=== PATIENT | female | born 1965 | race Caucasian/White ===

== ENCOUNTER → 2017-01-29 | Outpatient (REF) | payer BC ==
[2017-01-29 14:13] LABS: CALCIUM LEVEL 9.1 MG/DL (8.5-10.1)
== END ==
LOC: M LABDRAW1 12:50
PROVIDERS: ATTEND Orthopaedic Surgery
DX: M75.31 Calcific tendinitis of right shoulder (principal)

== ENCOUNTER → 2017-04-19 | Outpatient (REF) | payer BC ==
[2017-04-19 12:49] LABS: ALBUMIN 3.9 GM/DL (3.2-5.2); ALBUMIN/GLOBULIN RATIO 1.15 (1.00-1.93); ALKALINE PHOSPHATASE 60 U/L (45-117); ALT/SGPT 42 U/L (12-78); ANION GAP 8 MEQ/L (8-16); AST/SGOT 19 U/L (15-37); BILIRUBIN,TOTAL 0.4 MG/DL (0.2-1.0); BLOOD UREA NITROGEN 14 MG/DL (7-18); CARBON DIOXIDE LEVEL 27 MEQ/L (21-32); CHLORIDE LEVEL 101 MEQ/L (98-107); CHOLESTEROL LEVEL 232 MG/DL (<200); CREATININE FOR GFR 0.64 MG/DL (0.55-1.02); GLOMERULAR FILTRATION RATE > 60.0 (>51); GLUCOSE, FASTING 124 MG/DL (70-105); POTASSIUM SERUM 4.3 MEQ/L (3.5-5.1); SODIUM LEVEL 136 MEQ/L (136-145); TOTAL PROTEIN 7.3 GM/DL (6.4-8.2); TRIGLYCERIDES LEVEL 194 MG/DL (<150)
== END ==
LOC: M SFHCCLAY 09:32
PROVIDERS: ATTEND Nurse Practitioner
DX: R73.01 Impaired fasting glucose (principal); I10 Essential (primary) hypertension

== ENCOUNTER → 2018-01-24 | Outpatient (CLI) | payer BC | LOC: M WHC 09:07 | DX: Z12.31 Encounter for screening mammogram for malignant neoplasm of breast (principal) | CPT/HCPCS: 77067 ==

== ENCOUNTER → 2018-01-24 | Outpatient (REF) | payer BC ==
[2018-01-26 14:11] LABS: HPV HYBRID CAPTURE II Negative (Negative)
== END ==
LOC: M SFHCWAGY 09:41
DX: Z12.4 Encounter for screening for malignant neoplasm of cervix (principal)
CPT/HCPCS: G0123

== ENCOUNTER → 2020-01-26 | Outpatient (REF) | payer BC | LOC: M SFHCWAGY 17:05 | PROVIDERS: ATTEND Nurse Practitioner Family | DX: Z12.4 Encounter for screening for malignant neoplasm of cervix (principal) | CPT/HCPCS: 87624; G0123 ==

== ENCOUNTER → 2020-01-26 | Outpatient (CLI) | payer BC ==
--- NOTE | 2020-01-26 11:10 | REPMRS ---
Patient History The patient states she had a clinical breast exam in January 2020. Patient is postmenopausal. Family history of pancreatic cancer at age 70 in paternal grandmother, prostate cancer at age 70 in paternal grandfather, vaginal cancer at age 57 in mother, kidney cancer in father. Digital Woman Screen Mammo: January 26, 2020 - Exam #: [id number] Bilateral CC and MLO view(s) were taken. Technologist: Litzy Pearson, Technologist Prior study comparison: January 24, 2018, digital woman screen mammo performed at [facility]. September 15, 2011, bilateral screening mammogram performed at [facility]. April 23, 2008, bilateral screening mammogram performed at [facility]. FINDINGS: There are scattered fibroglandular densities. The Volpara volumetric breast density category is:B. There has been no change in the appearance of the mammogram from the prior studies. There is a mild amount of scattered fibroglandular density which is fairly symmetric. There is no interval development of dominant mass, architectural distortion, or grouped microcalcification suggestive of malignancy. 3-D tomosynthesis shows no additional findings. Assessment: BI-RADS/ACR category 1 mammogram. Negative Mammogram. Recommendation Routine screening mammogram of both breasts in 1 year (for women over age 40). This patient's Lifetime Breast Cancer Risk is estimated at 7.2 %. This mammogram was interpreted with the aid of an FDA-approved computer-aided dectection system. Electronically Signed By: Jose Luis Gonzales MD 01/26/20 2726
== END ==
LOC: M WHC 09:01
PROVIDERS: ATTEND Nurse Practitioner Family
DX: Z12.31 Encounter for screening mammogram for malignant neoplasm of breast (principal)

== ENCOUNTER → 2021-03-29 | Outpatient (CLI) | payer OTHER ==
[2021-03-29 14:54] LABS: GC DNA AMPLIFICATION NEGATIVE (NEGATIVE)
[2021-03-29 20:49] LABS: HEPATITIS A ANTIBODY IGM NEGATIVE (NEGATIVE); HEPATITIS B CORE ANTIBODY IGM NEGATIVE (NEGATIVE); HEPATITIS B SURFACE ANTIGEN NEGATIVE (NEGATIVE); HEPATITIS C VIRUS ABY INDEX 0.1 INDEX (<0.8)
[2021-03-30 10:03] LABS: HIV 1&2 SCREEN CENTAUR NEGATIVE (NEGATIVE)
== END ==
LOC: M PLALAB 12:46
PROVIDERS: ATTEND Nurse Practitioner Women's Health
DX: Z11.3 Encounter for screening for infections with a predominantly sexual mode of transmission (principal)

== ENCOUNTER → 2021-03-29 | Outpatient (CLI) | payer OTHER ==
--- NOTE | 2021-03-29 12:40 | REPMRS ---
Patient History The patient states she had a clinical breast exam in March 2021. Patient is postmenopausal. Family history of pancreatic cancer at age 70 in paternal grandmother, prostate cancer at age 70 in paternal grandfather, unknown cancer at age 57 in mother, unknown cancer in father, breast cancer at age 59 in sister. Patient states no breast complaints today. Patient has signed MRS History Sheet. Digital Woman Screen Mammo: March 29, 2021 - Exam #: [id number] Bilateral CC and MLO view(s) were taken. Technologist: Litzy Pearson, Technologist Prior study comparison: January 26, 2020, bilateral digital woman screen mammo performed at [facility]. January 24, 2018, digital woman screen mammo performed at [facility]. FINDINGS: There are scattered fibroglandular densities. Screening. Digital screening (2D) mammography was performed bilaterally in the CC and MLO projections. Additionally, breast tomosynthesis (3D mammography) was performed bilaterally in the CC and MLO projections. Todays exam was compared to the prior exam/exams. By history, the patient has no complaints of a palpable breast abnormality or other significant breast complaints. The breasts are unchanged in size and shape. There are no stefan-soft tissue densities or spiculated masses. There is no internal architectural distortion.Once again, stable benign appearing calcifications are seen. There are no suspicious stefan-calcific clusters. Skin thickening or nipple retraction is not present. IMPRESSION: BI-RADS Category 2- Benign Findings. There is no evidence of malignant alteration of the breasts. Followup examination recommended in one year. The Volpara volumetric breast density category is B, there are scattered areas of fibroglandular densities. This mammogram was read with the assistance of [employer],an FDA approved computer aided detection system for mammography. The lifetime Tyrer-Cuzick score is 13.8 % Negative x-ray reports should not delay surgical consultation if a dominant or clinically suspicious mass is present. Not all breast cancers can be identified by mammography. Therefore, we recommend that you continue to perform regular breast self-examination and physical examination and then promptly contact your physician of any concerns or changes. Adenosis and dense breasts may obscure an underlying neoplasm. Assessment: BI-RADS/ACR category 2 mammogram. Benign Findings. Recommendation Routine screening mammogram of both breasts in 1 year. Electronically Signed By: Chad Dozier DO 03/29/21 0177
== END ==
LOC: M WHC 11:46
PROVIDERS: ATTEND Nurse Practitioner Women's Health
DX: Z12.31 Encounter for screening mammogram for malignant neoplasm of breast (principal); Z80.0 Family history of malignant neoplasm of digestive organs; Z80.42 Family history of malignant neoplasm of prostate; Z80.3 Family history of malignant neoplasm of breast; R92.1 Mammographic calcification found on diagnostic imaging of breast

== ENCOUNTER → 2021-07-14 | Outpatient (CLI) | payer OTHER ==
[~2021-07-14] MED LIST: ISOVUE-300 61% 50ML VIAL As Ordered ONE; LIDOCAINE 1% MDV 20ML VIAL As Ordered ONE; methylPREDNISolone SUSP 40MG/ML 1ML VIAL (DEPO MEDROL) As Ordered ONE
--- NOTE | 2021-07-14 17:59 | REP ---
INDICATION: HIP INJECTION. COMPARISON: None TECHNIQUE: The procedure was performed by DONNA Clay, under the direct supervision of Dr. Rocha. The benefits and risks of the procedure were explained to the patient, and an informed consent was obtained. Directly prior to the start of the procedure, a formal time-out was completed in the procedure room. The right hip joint space was localized using fluoroscopic guidance. The skin was prepped and draped in a sterile fashion. Approximately 5 mL of 1% Lidocaine 10 mg/ml was used as a local anesthetic. Using fluoroscopic guidance, a #22 gauge spinal needle was inserted and advanced into the right hip joint space. Approximately 2 mL of Isovue 300 was injected to verify placement. Five mL of a solution containing 3 mL 1% lidocaine 10 mg/ml 2 cc Depo-Medrol 40 milligrams/milliliter and was injected into the joint space. The needle was removed and hemostasis was achieved. FINDINGS: The patient tolerated the procedure well and there were no immediate complications. IMPRESSION: 1. Technically successful right hip arthrogram. 0.1 minutes of fluoroscopy time was utilized for this procedure. Some fluoroscopic images are performed with last image hold technology. These images require no additional radiation. <Electronically signed by Jesica Ramos > 07/14/21 1725 <Electronically signed by Jasvir Rocha > 07/14/21 [id number]
== END ==
LOC: M RADPRO 10:57
PROVIDERS: ATTEND Physician Assistant Surgical
DX: M16.11 Unilateral primary osteoarthritis, right hip (principal)
CPT/HCPCS: 20610; 77002; J1030; Q9967

== ENCOUNTER → 2021-07-19 | Outpatient (CLI) | payer OTHER ==
--- NOTE | 2021-07-19 17:33 | REP ---
INDICATION: LT HIP PAIN W/ OA. COMPARISON: None TECHNIQUE: The procedure was performed by DONNA Clay, under the direct supervision of Dr. Rocha. The benefits and risks of the procedure were explained to the patient, and an informed consent was obtained. Directly prior to the start of the procedure, a formal time-out was completed in the procedure room. The left hip joint space was localized using fluoroscopic guidance. The skin was prepped and draped in a sterile fashion. Approximately 5 mL of 1% Lidocaine 10 mg/ml was used as a local anesthetic. Using fluoroscopic guidance, a #22 gauge spinal needle was inserted and advanced into the left hip joint space. Approximately 2 mL of Isovue 300 was injected to verify placement. Five mL of a solution containing 3 mL 1% lidocaine 10 mg/ml and 2 mL Depo-Medrol 40 mg/mL was injected into the joint space. The needle was removed and hemostasis was achieved. FINDINGS: The patient tolerated the procedure well and there were no immediate complications. IMPRESSION: 1. Technically successful left hip arthrogram. 0.1 minutes of fluoroscopy time was utilized for this procedure. Some fluoroscopic images are performed with last image hold technology. These images require no additional radiation. <Electronically signed by Jesica Ramos > 07/19/21 1598 <Electronically signed by Jasvir Rocha > 07/19/21 3640
== END ==
LOC: M RADPRO 12:17
PROVIDERS: ATTEND Physician Assistant Surgical
DX: M16.12 Unilateral primary osteoarthritis, left hip (principal)
CPT/HCPCS: 20610; 77002; J1030; Q9967